=== PATIENT | female | born 1935 | race Caucasian/White ===

== ENCOUNTER 2019-10-12 17:25 | Emergency (ER) | payer MEDICARE ==
[~2019-10-12] VITALS: Ht 157.5 cm; Wt 58.1 kg
[~2019-10-12 17:25] MED LIST: AMLODIPINE BESYL5 MG PO; CITALOPRAM HBR10 MG PO; HARD NAILS2500 MCG PO; HYDROCHLOROTHIA25 MG PO; LEVAQUIN500 MG PO; METHOCARBAMOL750 MG PO; METHOTREXATE2.5 MG PO; NORVASC5 MG PO; OMEPRAZOLE40 MG PO; OXYBUTYNIN CHLOR5 MG PO; OXYBUTYNIN PO; PREDNISONE5 MG PO; PROMETHAZINE HC25 M1 PO; REQUIP PO; REQUIP4 MG PO; RESTORIL15 MG PO; SIMVASTATIN40 MG PO; TEMAZEPAM15 MG PO; TOPROL XL25 MG PO; ULTRAM 50MG50 MG PO; XANAX1 MG PO; Z.0.CEFTIN500 MG PO; Z.0.DIOVAN160 MG PO; Z.0.HYDROCHLOROTH12. PO; Z.0.LOPRESSOR25 MG PO; Z.0.NORVASC2.5 MG PO; Z.0.OMEPRAZOLE20 M1 PO; Z.0.ZOCOR40 MG PO
--- OUTSIDE RECORDS SUMMARY | 2019-10-12 17:29 | XMS REPORT | Encounter Summary ---
Author Organization Unknown Address [address] [place] [address] Phone [phone] Care Team Providers Care Paralegal Instructor Name Role Phone Dr. Mikey Maza 3 [phone] Mikey Hedrick MD 3 [phone] Darius Chambers MD 82 [phone] Netta Lu - Daughter 64 [phone] Paresh Varner MD 105 [phone] José Miguel Dixon MD 107 [phone] Dionisio López DO 113 [phone] Luis Ahn MD 114 [phone] Briana Luu MD 115 [phone] Vineet Seth MD 118 [phone] Artemio Weaver MD 121 [phone] Edmundo George MD 212 [phone] Reason for Visit sinus symptoms; shortness of breath; cough / congestion Instructions 1. Acute upper respiratory infection upper respiratory infection (cold): care instructions azithromycin 250 mg tablet fluticasone 50 mcg/actuation nasal spray,suspension iykfkmyklyvxjrr-vkoexgsatqhdrpw-IM 2 mg-30 mg-10 mg/5 mL oral syrup 2. Body mass index 20-24 - normal 3. Benign essential hypertension 4. Hypercholesterolemia 5. Rheumatoid arthritis 6. Congestive heart failure Discussion Note: None recorded. Plan of Care Reminders Provider Appointments Return to Office on or around 05/31/2019 Mikey De La Fuente MD Lab None recorded. Referral None recorded. Procedures None recorded. Surgeries None recorded. Imaging None recorded. Medications Name Start Date amlodipine 2.5 mg tablet Take 1 tablet every day by oral route. azithromycin 250 mg tablet TAKE 2 TABLETS (500 MG) BY ORAL ROUTE ONCE DAILY FOR 1 DAY THEN 1 TABLET (250 MG) BY ORAL ROUTE ONCE DAILY FOR 4 DAYS betamethasone dipropionate 0.05 % topical cream UNK IF PT USES THIS RX biotin QD vjbhiyqlmwlbavb-qtbmrlovtjwsewy-PJ 2 mg-30 mg-10 mg/5 mL oral syrup Take 10 mL every 4-6 hours by oral route as needed. buspirone 5 mg tablet QD ciclopirox 0.77 % topical cream UNK IF PT USES THIS RX clotrimazole-betamethasone 1 %-0.05 % topical cream APPLY TO THE AFFECTED AND SURROUNDING AREAS OF SKIN BY TOPICAL ROUTE 2 TIMES PER DAY IN THE MORNING AND EVENING FOR 2 WEEKS Co Q-10 QD eszopiclone 3 mg tablet Take 1 tablet every day by oral route at bedtime for 30 days. fluticasone 0.05 % topical cream UNK IF PT USES THIS RX fluticasone 50 mcg/actuation nasal spray,suspension [place] 1 spray every day by intranasal route as needed. folic acid 1 mg tablet TAKE 1 TABLET(S) EVERY DAY BY ORAL ROUTE FOR 30 DAYS. furosemide 40 mg tablet TAKE 1 TABLET BY MOUTH EVERY DAY levocetirizine 5 mg tablet QD mupirocin 2 % topical ointment UNK IF PT USES THIS RX potassium chloride ER 10 mEq tablet,extended release Take 1 tablet every day by oral route. potassium chloride ER 10 mEq tablet,extended release(part/cryst) ropinirole 5 mg tablet Take 1 tablet every day by oral route at bedtime for 30 days. sertraline 100 mg tablet Take 1 tablet every day by oral route for 30 days. simvastatin 40 mg tablet TAKE 1 TABLET EVERY DAY tramadol 50 mg tablet Vitamin B12 1000 MCG: OTC: 1 TAB A DAY Vitamin D 2,000 units : QD-OTC Medications Administered None recorded. Vitals Height Weight BMI Blood Pressure 4 ft 11.9 in 126.6 lbs 24.8 kg/m2 122/76 mm[Hg] Lab Results None recorded. Allergies Code Code System Name Reaction Severity Status Onset 875646 RxNorm Bactrim Active Sulfa (Sulfonamide Antibiotics) Active Problems Name Status Onset Date Source Hypercholesterolemia Active 09/24/2016 Insomnia Active 09/24/2016 Restless Legs Active 09/24/2016 Benign Essential Hypertension Active 09/24/2016 Dyspnea Active 09/24/2016 Chest Pain Active 09/24/2016 Moderate Depression Active 03/23/2017 Gastroesophageal Reflux Disease without Esophagitis Active 03/23/2017 Electrocardiogram Abnormal Active 03/23/2017 Congestive Heart Failure Active 02/02/2018 Psoriasis Active 04/21/2018 Rheumatoid Arthritis Active 04/21/2018 Procedures Date Name Performed by 05/01/2018 Screening for Occult Blood in Feces Information not available Colonoscopy Information not available Nasal Surgery Procedure Information not available Partial Hysterectomy Information not available Vaccine List Vaccine Type influenza, high dose seasonal 09/24/20160.5 mL 12/02/20180.5 mL influenza, unspecified formulation 09/24/2015 pneumococcal conjugate PCV 13 03/23/20170.5 mL pneumococcal polysaccharide PPV23 04/20/20180.5 mL Social History Smoking Status Never Smoker Past Encounters 12/07/2018 Acute Upper Respiratory Infection; Body Mass Index 20-24 - Normal; Benign Essential Hypertension; Hypercholesterolemia; Rheumatoid Arthritis; Congestive Heart Failure Savannah Shabazz MD: [address] [place] [phone], Ph. 12/02/2018 Benign Essential Hypertension; Hypercholesterolemia; Moderate Depression; Candidal Intertrigo; Immunization; Body Mass Index 20-24 - Normal; Secondary Hyperparathyroidism; Rheumatoid Arthritis; Senile Purpura; Congestive Heart Failure; Atherosclerosis of Aorta; Postmenopausal State Mikey De La Fuente MD: [address] [place] [phone], Ph. History of Present Illness Note:83yo female presents for evaluation of URI symptoms starting last Thursday (3 days ago), worse on Thursday with head congestion, runny nose, sinus pressure, sore throat, cough productive of dark yellow phlegm. No blood in mucus. No fever, wheezing. Some shortness of breath with cough. Fatigue. Lives alone in senior apt in [place]. Here today with MOOSE.<div>Was recently seen last week on 12/02/18 for regular visit with medication refills. Had flu vaccine at that visit on 12/02/18.</div><div>Followed by Dr Chambers, cardiology for CHF</div ><div>Followed by Dr Vineet Seth, neph, for CKD3</div><div>Followed by rheum, Dr Dean - RA</div><div>Allergies: Bactrim (sulfa) - acute renal failure requiring temp dialysis (04/2013) on CKD3.</div> Review of Systems:ROS as noted in the HPI Review of Systems Comprehensive General Adult ROS Reported By: Patient Constitutional: Constitutional: no fever Eyes: Eyes: no vision change ENMT: Ears: no ear pain, difficulty hearing; wears bilateral hearing aids. Nose: no frequent nosebleeds, nose problems, sinus problems. Mouth/Throat: sore throat Cardiovascular: Cardiovascular: no chest pain Respiratory: Respiratory: no wheezing, no shortness of breath, no coughing up blood, cough Gastrointestinal: Gastrointestinal: no abdominal pain, no nausea, no vomiting, no diarrhea Neurologic: Neurologic: no headaches Endocrine: Endocrine: fatigue Allergic/Immunologic: Allergy/Immunologic: runny nose, sinus pressure Physical Exam Upper Respiratory Infection Exam Comprehensive Reported By: Patient Constitutional: General Appearance in no acute distress; pleasant, elderly female Skin: Inspection and palpation: no rash, no lesions, no ulcer, good turgor, no jaundice; dry skin Head: Sinuses right maxillary tenderness, left maxillary tenderness, right frontal tenderness, left frontal tenderness; frontal > maxillary sinus tenderness Eyes: Pupils EOM intact, PERRLA, conjunctiva non-injected Ears: Right External auditory canal normal appearance, no obstruction, no erythema, no discharge. Left External auditory canal normal appearance, no obstruction, no erythema, no discharge. Right Tympanic membrane pearly brown, landmarks clear; hearing aid removed for exam. Left Tympanic membrane: pearly brown, landmarks clear; hearing aid removed for exam Nose: Nasal Skin: no lesion, no lacerations. Nasal Mucosa normal, pink and moist Oral Cavity/Mouth: Lips, teeth, gums normal lips, normal gums. Oral Mucosa: normal, moist, no lesions. Palate: normal hard palate, normal soft palate. Tongue: normal tongue, no lesion, no edema. Tonsils: normal tonsils, no lesions. Posterior pharynx: normal Lymph Nodes: Cervical no palpable lymph node enlargement, no submandibular adenopathy, no posterior cervical adenopathy, no anterior cervical adenopathy, no supraclavicular adenopathy Neck: Neck symmetrical, trachea midline Lungs: Respiratory effort unlabored. Auscultation breath sounds normal, no wheezing, no rales / crackles, no rhonchi; CTA bilaterally Cardiovascular System: Auscultation regular rate and rhythm, no murmur, no rubs. Observation/Palpation of peripheral vascular system no edema
--- OUTSIDE RECORDS SUMMARY | 2019-10-12 17:29 | XMS REPORT ---
Author Organization Unknown Address [address] [place] [address] Phone [phone] Care Team Providers Care Court Transcriber Name Role Phone VASHTI THAPA MD 82 [phone] CURTIS GRAMAJO MD 115 [phone] NALINI DUGAN MD 118 [phone] KEYLA RAMIREZ MD 121 [phone] RANDALL HOWARD MD 105 [phone] RINA MANZANARES MD 114 [phone] COMFORT MCGUIRE MD 212 [phone] SUSU MENDOZA 113 [phone] Allergies Code Code System Name Reaction Severity Status Onset [id number] RxNorm Bactrim Active Sulfa (Sulfonamide Antibiotics) Active Medications Name Status Start Date Stop Date acetaminophen 300 mg-codeine 30 mg tablet Completed 09/24/2016 alclometasone 0.05 % topical cream Completed 09/24/2016 alprazolam 0.25 mg tablet i BID Completed 09/24/2016 03/23/2017 alprazolam 0.5 mg tablet Completed 03/23/2017 amlodipine 2.5 mg tablet Active Not available amlodipine 5 mg tablet Completed 09/24/2016 ammonium lactate 12 % lotion Completed 08/06/2017 amoxicillin 500 mg capsule Completed 09/24/2016 amoxicillin 500 mg-potassium clavulanate 125 mg tablet Completed 03/23/2017 amoxicillin 875 mg-potassium clavulanate 125 mg tablet Completed 08/06/2017 azithromycin 250 mg tablet Completed 11/05/2017 Belsomra 15 mg tablet Completed 08/06/2017 benzonatate 100 mg capsule Completed 03/23/2017 biotin QD Active Not available qwtkvwhpwmumpmg-rpmftrigdglclwv-JD 2 mg-30 mg-10 mg/5 mL syrup Completed 11/05/2017 cefdinir 300 mg capsule Take 1 capsule twice a day by oral route. Active Not available chlorhexidine gluconate 0.12 % mouthwash Completed 09/24/2016 Ciprodex 0.3 %-0.1 % ear drops,suspension INSTILL 4 DROPS INTO AFFECTED EAR(S) BY OTIC ROUTE 2 TIMES PER DAY FOR 7 DAYS Completed 11/05/2017 ciprofloxacin 250 mg tablet Completed 08/06/2017 ciprofloxacin 500 mg tablet Completed 01/29/2018 citalopram 10 mg tablet Completed 08/06/2017 citalopram 20 mg tablet Completed 03/23/2017 citalopram 40 mg tablet Completed 03/23/2017 clobetasol 0.05 % scalp solution Completed 09/24/2016 clobetasol 0.05 % topical cream Completed 09/24/2016 clonazepam 0.5 mg tablet Completed 03/23/2017 Co Q-10 QD Active Not available eszopiclone 2 mg tablet Take 1 tablet every day by oral route for 30 days. Completed 08/06/2017 eszopiclone 3 mg tablet Active Not available folic acid 1 mg tablet TAKE 1 TABLET(S) EVERY DAY BY ORAL ROUTE FOR 30 DAYS. Active Not available furosemide 20 mg tablet Completed 02/01/2018 furosemide 40 mg tablet Active Not available halobetasol propionate 0.05 % topical ointment Completed 09/24/2016 hydrochlorothiazide 25 mg tablet Completed 01/29/2018 hydrocodone 5 mg-acetaminophen 325 mg tablet Completed 08/06/2017 hydrocortisone 2.5 % topical cream Completed 09/24/2016 hydroxyzine HCl 25 mg tablet 1 tab every 2 days prn Completed 08/06/2017 hydroxyzine pamoate 25 mg capsule Completed 09/24/2016 levofloxacin 250 mg tablet Completed 09/24/2016 lorazepam 0.5 mg tablet Completed 03/23/2017 meloxicam 7.5 mg tablet Take 1 tablet twice a day by oral route. Completed 11/05/2017 methocarbamol 500 mg tablet Completed 08/06/2017 methotrexate sodium 2.5 mg tablet Completed 09/24/2016 mometasone 0.1 % topical cream Active Not available mometasone 0.1 % topical ointment Apply 1 application every day by topical route for 30 days. Completed 08/06/2017 mupirocin 2 % topical ointment Completed 09/24/2016 kgojwlky-prlzbixye-jgxltvelm 3.5 mg-10,000 unit/mL-1 % ear drops,susp Completed 02/01/2018 nitrofurantoin monohydrate/macrocrystals 100 mg capsule Completed 08/06/2017 nitroglycerin 0.4 mg sublingual tablet Completed 08/06/2017 omeprazole 40 mg capsule,delayed release Completed 03/23/2017 ondansetron HCl 4 mg tablet Completed 08/06/2017 oxybutynin chloride 5 mg tablet Take 1 tablet twice a day by oral route. Completed 09/24/2016 potassium chloride ER 10 mEq capsule,extended release QD Completed 09/24/2016 09/24/2016 potassium chloride ER 10 mEq tablet,extended release Take 1 tablet every day by oral route. Active Not available potassium chloride ER 10 mEq tablet,extended release(part/cryst) Completed 02/01/2018 quetiapine 25 mg tablet Completed 03/23/2017 quetiapine 50 mg tablet Completed 03/23/2017 ropinirole 4 mg tablet Completed 03/23/2017 ropinirole 5 mg tablet Active Not available ropinirole ER 6 mg tablet,extended release 24 hr Completed 03/23/2017 sertraline 25 mg tablet Active Not available sertraline 50 mg tablet Completed 03/23/2017 simvastatin 40 mg tablet Active Not available temazepam 15 mg capsule Take 1 capsule every day by oral route as needed. Completed 03/23/2017 temazepam 30 mg capsule Completed 09/24/2016 tramadol 50 mg tablet Active Not available trazodone 50 mg tablet Completed 03/23/2017 triamcinolone acetonide 0.025 % topical cream Completed 08/06/2017 triamcinolone acetonide 0.1 % topical cream Apply 1 application every day by topical route for 30 days. Completed 08/06/2017 triamcinolone acetonide 0.147 mg/gram topical aerosol Completed 03/23/2017 trospium 20 mg tablet Take 1 tablet every day by oral route. Completed 09/24/2016 Vitamin B12 1000 MCG: OTC: 1 TAB A DAY Active Not available Vitamin D 2,000 units : QD-OTC Active Not available Voltaren 1 % topical gel Completed 09/24/2016 zolpidem 5 mg tablet Completed 03/23/2017 Problems Name Status Onset Date Source Hypercholesterolemia Active 09/24/2016 Depressive Disorder Unknown 09/24/2016 Insomnia Active 09/24/2016 Restless Legs Active 09/24/2016 Benign Essential Hypertension Active 09/24/2016 Dyspnea Active 09/24/2016 Chest Pain Active 09/24/2016 Moderate Depression Active 03/23/2017 Gastroesophageal Reflux Disease without Esophagitis Active 03/23/2017 Electrocardiogram Abnormal Active 03/23/2017 Procedures Date Name Performed by Nasal Surgery Procedure Notes: Post Nasal Fracture Information not available Partial Hysterectomy Information not available 09/24/2016 Electrocardiogram [facility] [address] [place] [id number] ([facility] [address]) 03/23/2017 Electrocardiogram [facility] [address] [place] [address] (Work [address]) Lab Results Date Name Specimen Result Interpretation Description Value Range Status Address 08/06/2017 CMP, Serum or Plasma Alt 15 U/L 0-55 U/L Final [facility]: [address] [place] [address], [place] Ast 21 U/L 5-34 U/L Final [facility]: [address] [facility], [place] High Bun 44.2 mg/dL 9.8-20.1 mg/dL Final [facility]: [address] [place] [address], [place] Alk Phos 102 unit/L 40-150 unit/L Final [facility]: [address] [facility], [place] High Glucose 101 mg/dL 70-99 mg/dL Final [facility]: [address] [place] [address], [place] Albumin 3.8 g/dL 3.5-5.0 g/dL Final [facility]: [address] [facility], [place] High Creatinine 1.39 mg/dL 0.57-1.11 mg/dL Final [facility]: [address] [place] [address], [place] Low eGFR Non- 37 mL/min/1.73m2 >60 mL/min/1.73m2 Final [facility]: [address] [place] [address], [place] Total Bilirubin 0.4 mg/dL 0.2-1.2 mg/dL Final [facility]: [address] Low eGFR - 44 mL/min/1.73m2 >60 mL/min/1.73m2 Final [facility]: [address] [place] [address] Sodium 143 mEq/L 136-145 mEq/L Final [facility]: [address] Potassium 4.4 mEq/L 3.5-5.1 mEq/L Final [facility]: [address] Chloride 103 mmol/L 98-107 mmol/L Final [facility]: [address] Total Protein 7.4 g/dL 6.4-8.3 g/dL Final [facility]: [address] High Calcium 10.8 mg/dL 8.4-10.2 mg/dL Final [facility]: [address] Co2 28.7 mmol/L 23.0-31.0 mmol/L Final [facility]: [address] Anion Gap 11 calc Final [facility]: [address] 08/06/2017 Lipid Panel, Serum Hdl 49 mg/dL 40-60 mg/dL Final [facility]: [address] High Triglyceride 165 mg/dL 0-149 mg/dL Final [facility]: [address] VLDL Calc. 33 mg/dL Final [facility]: [address] cholesterol/HDL Ratio 3.2 mg/dL Final [facility]: [address] non-HDL Cholesterol Calc. 109 mg/dL 0-160 mg/dL Final [facility]: [address] Cholesterol 158 mg/dL 0-199 mg/dL Final [facility]: [address] LDL Calc. 76 mg/dL 0-130 mg/dL Final [facility]: [address] 03/23/2017 CMP, Serum or Plasma Alt 24 U/L 0-55 U/L Final [facility]: [address] Ast 29 U/L 5-34 U/L Final [facility]: [address] High Bun 56 mg/dL 10-20 mg/dL Final [facility]: [address] Alk Phos 62 unit/L 40-150 unit/L Final [facility]: [address] [facility], [place] Glucose 97 mg/dL 70-99 mg/dL Final [facility] [address] [facility] Albumin 3.7 g/dL 3.5-5.0 g/dL Final [facility]: [address], [place] High Creatinine 1.67 mg/dL 0.57-1.11 mg/dL Final [facility]: [address] [facility] Low eGFR Non- 30 mL/min/1.73m2 >60 mL/min/1.73m2 Final [facility]: [address] [place] [address] Total Bilirubin 0.7 mg/dL 0.2-1.2 mg/dL Final [facility]: [address] [facility] Low eGFR - 36 mL/min/1.73m2 >60 mL/min/1.73m2 Final [facility]: [address] [place] [address] Sodium 144 mEq/L 136-145 mEq/L Final [facility]: [address] Potassium 4.2 mEq/L 3.5-5.1 mEq/L Final [facility]: [address] Chloride 105 mmol/L 98-107 mmol/L Final [facility]: [address] [place] [address] Total Protein 7.3 g/dL 6.4-8.3 g/dL Final [facility] [address] [facility] Calcium 9.7 mg/dL 8.4-10.2 mg/dL Final [facility]: [address] Co2 27.1 mmol/L 23.0-31.0 mmol/L Final [facility]: [address] Anion Gap 12 calc Final [facility]: [address] [facility] 03/23/2017 Lipid Panel, Serum Hdl 48 mg/dL 40-60 mg/dL Final [facility]: [address] [facility] Triglyceride 124 mg/dL 0-149 mg/dL Final [facility]: [address] VLDL Calc. 25 mg/dL Final [facility]: [address] cholesterol/HDL Ratio 3 mg/dL Final [facility]: [address] non-HDL Cholesterol Calc. 111 mg/dL 0-160 mg/dL Final [facility]: [address] Cholesterol 159 mg/dL 0-199 mg/dL Final [facility]: [address] LDL Calc. 86 mg/dL 0-130 mg/dL Final [facility]: [address] 03/23/2017 HbA1C (Hemoglobin a1C), Blood High A1C W/eag 6.1 % 1.0-5.7 % Final [facility]: [address] Average Blood Glucose 128 mg/dL Final [facility]: [address] [facility] 09/24/2016 CBC W/ Auto Diff Wbc 6.82 x10*3/L 2.60-11.20 x10*3/L Final [facility]: [address] Low Rbc 3.57 10*12/L 3.93-5.87 10*12/L Final [facility]: [address] Hemoglobin 12.1 g/dL 10.7-15.7 g/dL Final [facility]: [address] Hematocrit 36.5 % 33.2-46.8 % Final [facility]: [address] [place] [address] Mcv 102.2 fL 77.8-103.4 fL Final [facility]: [address] Mch 33.9 pg 24.8-35.0 pg Final [facility]: [address] Mchc 33.2 g/dL 31.5-35.9 g/dL Final [facility]: [address] RDW-SD 46.7 fL 35.8-50.4 fL Final [facility]: [address] Platelet Count 169.0 k/uL 126.7-416.1 k/uL Final [facility]: [address] Mpv 11.3 fL 8.3-13.5 fL Final [facility]: [address] [place] Neut% 67.5 % 39.5-76.9 % Final [facility]: [address] [place] Lymph% 17.6 % 12.6-45.8 % Final [facility]: [address] [place] Mon% 11.4 % 3.7-12.9 % Final [facility]: [address] [place] Eos% 3.400 % 0.001-6.400 % Final [facility]: [address] [place] Baso% 0.1 % 0.0-1.5 % Final [facility]: [address] [place] Neut# 4.6 x10*3/L 0.6-7.6 x10*3/L Final [facility]: [facility] [address] [place] Lymph# 1.2 x10*3/L 0.7-3.3 x10*3/L Final [facility]: [address] [place] Mon# 0.8 x10*3/L 0.2-1.0 x10*3/L Final [facility]: [address] [place] Eos# 0.23 x10*3/L 0.00-0.44 x10*3/L Final [facility]: [address] [place] Baso# 0.010 x10*3/L 0.001-0.080 x10*3/L Final [facility] [address] [facility] 09/24/2016 CMP, Serum or Plasma Alt 23.0 U/L 0.0-55.0 U/L Final [facility]: [address] [facility] Ast 27.0 U/L 5.0-34.0 U/L Final [facility]: [address] [facility] High Bun 44.0 mg/dL 7.0-20.0 mg/dL Final [facility]: [address] Alk Phos 69.0 unit/L 40.0-150.0 unit/L Final [facility]: [address], [place] Glucose 92.0 mg/dL 70.0-99.0 mg/dL Final [facility]: [address], [place] Albumin 3.8 g/dL 3.5-5.0 g/dL Final [facility]: [address], [place] High Creatinine 1.4 mg/dL 0.6-1.1 mg/dL Final [facility]: [address], [place] Low eGFR Non- 36.3 mL/min/1.73m2 >60.0 mL/min/1.73m2 Final [facility]: [address] [place] Total Bilirubin 0.8 mg/dL 0.2-1.2 mg/dL Final [facility]: [address] [facility] Low eGFR - 46.7 mL/min/1.73m2 >60.0 mL/min/1.73m2 Final [facility]: [address], [place] Sodium 143.0 mEq/L 137.0-144.0 mEq/L Final [facility]: [address] [facility] Potassium 4.2 mEq/L 3.5-5.0 mEq/L Final [facility]: [address] [facility] Chloride 105.0 mmol/L 101.0-110.0 mmol/L Final [facility]: [address] [place] Total Protein 7.2 g/dL 6.4-8.3 g/dL Final [facility]: [address] [place] Calcium 9.9 mg/dL 8.4-10.2 mg/dL Final [facility]: [address], [place] Co2 28 mmol/L 22-31 mmol/L Final [facility]: [address] [facility] Anion Gap 10.0 calc Final [facility]: [address] [place] 09/24/2016 Lipid Panel, Serum High Hdl 69.0 mg/dL 40.0-60.0 mg/dL Final [facility]: [address] [place] [address], [place] Triglyceride 82.0 mg/dL 0.0-149.0 mg/dL Final [facility]: [address] [place] [address], [place] VLDL Calc. 16.4 mg/dL Final [facility]: [address] cholesterol/HDL Ratio 2.4 mg/dL Final [facility]: [address] [place] [address], [place] non-HDL Cholesterol Calc. 96.0 mg/dL 0.0-160.0 mg/dL Final [facility]: [address] [place] [address], [place] Cholesterol 165.0 mg/dL 0.0-199.0 mg/dL Final [facility]: [address] LDL Calc. 79.6 mg/dL 0.0-130.0 mg/dL Final [facility]: [address] [place] [address], [place] 09/24/2016 HbA1C (Hemoglobin a1C), Blood High A1C W/eag 6.0 % 1.0-5.7 % Final [facility]: [address] Average Blood Glucose 125.5 mg/dL Final [facility]: [address] [place] [address], [place] 04/30/2016 CMP, Serum or Plasma No observation recorded. [facility]: [id number], [place] 09/24/2015 CBC W/ Auto Diff No observation recorded. [facility]: [id number], [place] Electrocardiogram Rate & Rhythm 61 [facility]: [address], [place] Interval 164 [facility]: [address], [place] QRS Duration 170 [facility]: [address], [place] QT Interval 482 [facility]: [address], [place] Electrocardiogram Rate & Rhythm 58 [facility]: [address], [place] Interval 156 [facility]: [address], [place] QRS Duration 102 [facility]: [address], [place] Interval 462 [facility]: [address], [place] Past Encounters 02/01/2018 Syncope; Acute Urinary Tract Infection; Removal of Suture Jaden Montoya MD: [address] [place] [phone], Ph. 01/29/2018 Aishwarya Martinez: [address] [facility] [address], [place] [address], Ph. 11/05/2017 Benign Essential Hypertension; Hypercholesterolemia; Otitis Externa Jaden Montoya MD: [address] [place] [phone], Ph. 08/06/2017 Body Mass Index 20-24 - Normal; Benign Essential Hypertension; Hypercholesterolemia; Depressive Disorder; At Risk for Falls; Depression Screening; Edema; Otitis Externa; Acute Bronchitis Jaden Montoya MD: [address] [place] [phone], Ph. 03/23/2017 Dyspnea; Benign Essential Hypertension; Hypercholesterolemia; Electrocardiogram Abnormal; Diarrhea; Moderate Depression; Gastroesophageal Reflux Disease without Esophagitis; Adult Health Examination; Pneumococcal Vaccination Shanti Ferris MD: [address] [place] [phone], Ph. 09/24/2016 Dyspnea; Chest Pain; Depressive Disorder; Insomnia; Benign Essential Hypertension; Hypercholesterolemia; Adult Health Examination; Influenza Vaccination; Restless Legs Shanti Ferris MD: [address] [place] [phone], Ph. Social History Smoking Status Never Smoker Vaccine List Vaccine Type influenza, high dose seasonal 09/24/20160.5 mL influenza, unspecified formulation 09/24/2015 pneumococcal conjugate PCV 13 03/23/20170.5 mL Plan of Care Patient Instructions continue all meds,d/c q tip use continue all meds f/u gas operations superintendent ,enrober tender ,psychiatrist ,orthopedist Reminders Provider Appointments None recorded. Lab None recorded. Referral None recorded. Procedures None recorded. Surgeries None recorded. Imaging None recorded. Vitals 02/01/2018 03:45PM TCM Height Weight BMI Blood Pressure 5 ft 125 lbs 24.4 kg/m2 144/60 mm[Hg] 11/05/2017 12:30PM Est Patient Height Weight Blood Pressure 5 ft (1) 150/62 mm[Hg] (2) 140/60 mm[Hg] 08/06/2017 12:45PM Est Patient Height Weight BMI Blood Pressure 5 ft 121 lbs 23.6 kg/m2 110/64 mm[Hg] 03/23/2017 03:00PM Est Patient Height Weight BMI Blood Pressure 5 ft 128 lbs 25 kg/m2 126/54 mm[Hg] 09/24/2016 08:15AM PUBLIC HEALTH/EST CPX Height Weight BMI Blood Pressure 5 ft 125 lbs 24.4 kg/m2 (1) 140/71 mm[Hg] (2) 146/66 mm[Hg]
--- OUTSIDE RECORDS SUMMARY | 2019-10-12 17:29 | XMS REPORT | Encounter Summary ---
Author Organization Unknown Address [address] [place] [address] Phone [phone] Care Team Providers Care Fitness And Wellness Manager Name Role Phone Dr. Mikey Maza 3 [phone] Mikey Hedrick MD 3 [phone] Darius [place] MD 82 [phone] Netta Lu - Daughter 64 [phone] Paresh Varner MD 105 [phone] José Miguel Dixon MD 107 [phone] Luis Ahn MD 114 [phone] Briana Luu MD 115 [phone] Vineet Seth MD 118 [phone] Artemio Weaver MD 121 [phone] Edmundo George MD 212 [phone] Reason for Visit Benign essential hypertension; AWV Annual Wellness Visit Female (VFP) Instructions 1. Adult health examination 2. Benign essential hypertension amlodipine 10 mg tablet 3. Depression screening 4. Body mass index 25-29 - overweight learning about healthy weight 5. Screening for osteoporosis 6. Chronic kidney disease stage 3 7. At risk for falls preventing falls: care instructions 8. Thrombocytopenic disorder CBC w/ auto diff 9. Hyperkalemia BMP, serum or plasma 10. Screening for malignant neoplasm of colon 11. Screening mammography mammogram: about this test 12. Dyspnea on exertion electrocardiogram 13. Electrocardiogram abnormal Discussion Note: None recorded. Plan of Care Reminders Provider Appointments Est Patient 06/30/2019 10:15AM Mikey De La Fuente MD Lab BMP, Serum or Plasma 06/14/2019 [facility] Laboratory CBC W/ Auto Diff 06/14/2019 [facility] Referral None recorded. Procedures None recorded. Surgeries None recorded. Imaging Electrocardiogram 06/14/2019 [facility] ([facility]) [place] Medications Name Start Date amlodipine 10 mg tablet Take 1 tablet every day by oral route as directed for 30 days. amlodipine 2.5 mg tablet Take 1 tablet every day by oral route. biotin QD buspirone 7.5 mg tablet Take 1 tablet every day by oral route. Co Q-10 QD Creon 36,000 unit-114,000 unit-180,000 unit capsule,delayed release Take one capsul with a snack and 2 capsules with a meal 06/14/2019 folic acid 1 mg tablet TAKE 1 TABLET(S) EVERY DAY BY ORAL ROUTE FOR 30 DAYS. furosemide 40 mg tablet Take 0.5 mg every day by oral route. iron one daily levocetirizine 5 mg tablet Take 1 tablet every day by oral route. pantoprazole 20 mg tablet,delayed release Take 1 tablet every day by oral route. potassium chloride ER 10 mEq tablet,extended release Take 1 tablet every day by oral route. quetiapine 25 mg tablet Take 1 tablet every day by oral route for 30 days. ropinirole 5 mg tablet Take 1 tablet [...] BMI Blood Pressure 4 ft 11.9 in 128 lbs 25.1 kg/m2 (1) 192/70 mm[Hg] (2) 194/70 mm[Hg] Lab Results None recorded. Allergies Code Code System Name Reaction Severity Status Onset 069085 RxNorm Bactrim Active Sulfa (Sulfonamide Antibiotics) Active [...] Active 04/21/2018 Procedures Date Name Performed by Colonoscopy Information not available Nasal Surgery Procedure Information not available Partial Hysterectomy Information not available 06/14/2019 Electrocardiogram [facility] ([facility]) [id number] [place] [address] ([address]) Vaccine List Vaccine Type influenza, high dose seasonal 09/24/20160.5 mL 12/02/20180.5 mL influenza, unspecified formulation 09/24/2015 pneumococcal conjugate PCV 13 03/23/20170.5 mL pneumococcal polysaccharide PPV23 04/20/20180.5 mL Social History Tobacco Smoking Status Never Smoker Past Encounters 06/14/2019 Adult Health Examination; Benign Essential Hypertension; Depression Screening; Body Mass Index 25-29 - Overweight; Screening for Osteoporosis; Chronic Kidney Disease Stage 3; At Risk for Falls; Thrombocytopenic Disorder; Hyperkalemia; Screening for Malignant Neoplasm of Colon; Screening Mammography; Dyspnea on Exertion; Electrocardiogram Abnormal Mikey De La Fuente MD: [facility] [place] [address], Ph. History of Present Illness Mini Cog Reported By: Patient Functional Ability: Personal/Social/ Draw a clock and write in the numbers in the correct place, and set the time to 10 minutes after 11 o'clock was completed correctly? No, 3 word recall: Your nurse or doctor will ask you to remember 3 words. In 5 minutes, they will ask you to repeat them. Patient recalled 2 words Opioid Use Assessment Reported By: Patient Opioid Use Assessment:: Current Use of Opioids : Tramadol (Ultram). Has the patient tried other pain management modalities: yes Review of Systems Comprehensive General Adult ROS Reported By: Patient Constitutional: Constitutional: no fever Eyes: Eyes: no vision change ENMT: Ears: no ear pain. Nose: no sinus problems. Mouth/Throat: no sore throat Cardiovascular: Cardiovascular: no chest pain, no lightheadedness, shortness of breath when walking Respiratory: Respiratory: no cough, no wheezing Gastrointestinal: Gastrointestinal: no abdominal pain, no nausea, no vomiting, no constipation, no diarrhea Neurologic: Neurologic: no loss of consciousness, no headaches Psychiatric: Psych: no depression, no alcohol abuse, no anxiety, no suicidal thoughts Physical Exam General Adult Exam (male) Reported By: Patient Constitutional: General Appearance: healthy-appearing, overweight. Level of Distress: NAD. Ambulation: ambulating normally Psychiatric: Insight: good judgement. Mental Status: active and alert, normal mood, normal affect. Orientation: to time, to place, to person. Memory: recent memory normal, remote memory normal Eyes: Lids and Conjunctivae: non-injected, no discharge Neck: Neck: trachea midline Lungs: Auscultation: breath sounds normal Cardiovascular: Heart Auscultation: RRR, normal S1, normal S2, no murmurs Abdomen: Inspection and Palpation: soft, non-distended, no tenderness, no guarding Musculoskeletal:: Motor Strength and Tone: normal, normal tone. Joints, Bones, and Muscles: normal movement of all extremities. Extremities: no edema Neurologic: Gait and Station: normal gait
--- OUTSIDE RECORDS SUMMARY | 2019-10-12 17:29 | XMS REPORT | Encounter Summary ---
Author Organization Unknown Address [address] [place] [address] Phone [phone] Care Team Providers Care Medical Certification Specialist Name Role Phone Dr. Mikey Maza 3 [phone] Mikey Hedrick MD 3 [phone] Darius [place] MD 82 [phone] Netta Lu - Daughter 64 [phone] Paresh Varner MD 105 [phone] José Miguel [place] MD 107 [phone] Luis Ahn MD 114 [phone] Briana Luu MD 115 [phone] Vineet Seth MD 118 [phone] Artemio Weaver MD 121 [phone] Edmundo George MD 212 [phone] Reason for Visit Left rib pain Instructions 1. Benign essential hypertension 2. Fall 3. Rib pain XR, ribs, unilateral, 2 view tramadol 50 mg tablet prednisone 20 mg tablet 4. Ecchymosis CBC w/ auto diff Discussion Note Daughter will take pt to her home to stay with her for a few days Encouraged to get the Flu vaccine in Jul last week - Aug 23, 2019. Frequent deep breaths in & out to avoid Atelectasis at lung bases. Usea large firm pillow & push against leo Lt rivs & do slow deep breaths in & out . f/u in 2 week with pcp Patient educational handouts: No information available. Plan of Care Reminders Provider Appointments None recorded. Lab CBC W/ Auto Diff 07/12/2019 [facility] Laboratory Referral None recorded. Procedures None recorded. Surgeries None recorded. Imaging XR, Ribs, Unilateral, 2 View 07/12/2019 [facility] Medications Name Start Date amlodipine 10 mg tablet Take 1 tablet every day by oral route as directed for 30 days. biotin QD buspirone 7.5 mg tablet Take [...] 1 tablet every day by oral route. prednisone 20 mg tablet Take 1 tablet every day by oral route after meals for 5 days. take with food in am quetiapine 25 mg tablet Take 1 tablet every day by oral route for 30 days. ropinirole 5 mg tablet Take 1 tablet every day by oral route at bedtime for 30 days. sertraline 100 mg tablet Take 1 tablet every day by oral route for 30 days. simvastatin 40 mg tablet TAKE 1 TABLET EVERY DAY tramadol 50 mg tablet Take 1 tablet twice a day by oral route as needed for 15 days. no alcohol or driving when on this medicine Vitamin B12 1000 MCG: OTC: 1 TAB A DAY Vitamin D 2,000 units : QD-OTC Medications Administered None recorded. Vitals Height Weight BMI Blood Pressure 4 ft 11.9 in 128.4 lbs 25.2 kg/m2 136/60 mm[Hg] Lab Results Date Name Specimen Result Interpretation Description Value Range Status Address 07/12/2019 CBC W/ Auto Diff Wbc 8.23 x10*3/L 3.98-10.04 x10*3/L Final [facility] Laboratory: [address] Low Rbc 3.66 10*12/L 3.93-5.22 10*12/L Final [facility] Laboratory: [address] Hemoglobin 12.00 g/dL 11.20-15.70 g/dL [facility] Laboratory: [address] Hematocrit 36.7 % 34.1-44.9 % [facility] Laboratory: [address] High Mcv 100.3 fL 80.0-100.[address] [facility] Laboratory: [address] Denson [facility] Mch 32.8 pg 25.6-32.[address] [facility] Laboratory: [address] [place] Mchc 32.7 g/dL 32.2-35.5 g/dL Final [facility]: [address] [place] High RDW-SD 47.4 fL 36.4-46.[address] [facility] Laboratory: [address] [place] Low Platelet Count 170.0 k/uL 182.0-369.0 k/uL Final [facility]: [address] [place] Mpv 11.5 fL 7.5-11.[address] [facility] Laboratory: [address] Denson [facility] Neut% 78.5 % 34.0-71.1 % Final [facility]: [address] [place] Low Lymph% 11.8 % 19.3-51.7 % Final [facility]: [address] [place] Mon% 8.5 % 4.7-12.5 % Final [facility] Laboratory: [address] [place] Eos% 1.1 % 0.7-5.8 % Final [facility] Laboratory: [address] Denson, [place] Baso% 0.1 % 0.1-1.2 % Final [facility]: [address] [place] High Neut# 6.5 x10*3/L 1.6-6.1 x10*3/L Final [facility] Laboratory: [address] [place] Low Lymph# 1.0 x10*3/L 1.2-3.7 x10*3/L Final [facility] Laboratory: [address] [place] Mon# 0.7 x10*3/L 0.2-0.9 x10*3/L Final [facility]: [address]enson [place] Eos# 0.09 x10*3/L 0.04-0.36 x10*3/L Final [facility]: [address] [place] Baso# 0.01 x10*3/L 0.01-0.08 x10*3/L Final [facility]: [address] Denson [place] 06/14/2019 CBC W/ Auto Diff Wbc 5.23 x10*3/L 3.98-10.04 x10*3/L Final [facility]: [address] [place] Low Rbc 3.37 10*12/L 3.93-5.22 10*12/L Final [facility] Hemoglobin 11.10 g/dL 11.20-15.70 g/dL Final [facility] Hematocrit 34.1 % 34.1-44.9 % Final [facility] Mcv 101.2 fL 80.0-100.[address] [facility] High Mch 32.9 pg 25.6-32.[address] [facility] Mchc 32.6 g/dL 32.2-35.5 g/dL Final [facility]: [address] Denson [facility] RDW-SD 48.6 fL 36.4-46.[address] [facility] Low Platelet Count 150.0 k/uL 182.0-369.0 k/uL Final [facility] Mpv 12.7 fL 7.5-11.[address] [facility] Neut% 66.0 % 34.0-71.1 % Final [facility] [facility] Lymph% 21.6 % 19.3-51.7 % Final [facility] Mon% 11.1 % 4.7-12.5 % Final [facility] Eos% 1.1 % 0.7-5.8 % Final [facility] Baso% 0.2 % 0.1-1.2 % Final [facility]: [address] Denson [place] Neut# 3.5 x10*3/L 1.6-6.1 x10*3/L Final [facility] Laboratory: [address] Denson [place] Low Lymph# 1.1 x10*3/L 1.2-3.7 x10*3/L Final [facility] Laboratory: [address] Denson, [place] Mon# 0.6 x10*3/L 0.2-0.9 x10*3/L Final [facility]: [address] Majano [facility], [place] Eos# 0.06 x10*3/L 0.04-0.36 x10*3/L Final [facility]: [address] Denson [place] Baso# 0.01 x10*3/L 0.01-0.08 x10*3/L Final [facility]14[facility]2019 BMP, Serum or Plasma High Bun 30.1 mg/dL 9.8-25.0 mg/dL Final [facility] Laboratory: [address] Glucose 97 mg/dL 70-99 mg/dL Final [facility] Laboratory: [address] Majano [address] [place] [address] High Creatinine 1.43 mg/dL 0.57-1.11 mg/dL Final [facility] Laboratory: [address] ABNORMAL eGFR Non- 35 mL/min/1.73m2 Final [facility] Laboratory: [address] ABNORMAL eGFR - 43 mL/min/1.73m2 Final [facility] Laboratory: [address] Sodium 142 mEq/L 135-145 mEq/L Final [facility] Laboratory: [address] Potassium 4.9 mEq/L 3.5-5.1 mEq/L Final [facility] High Chloride 111 mmol/L 98-110 mmol/L Final [facility] Laboratory: [address] Calcium 10.2 mg/dL 8.6-10.4 mg/dL Final [facility] Laboratory: [address] [place] [address], [place] Co2 24.9 mmol/L 20.0-32.0 mmol/L Final [facility] Laboratory: [address] [place] [address], [place] Anion Gap [address] [facility] Laboratory: [address] [place] [address], [place] Allergies Code Code System Name Reaction Severity Status Onset 256294 RxNorm Bactrim Active Sulfa (Sulfonamide Antibiotics) Active [...] Active 04/21/2018 Procedures Date Name Performed by 11/09/1969 Hysterectomy (Total) Information not available Nasal Surgery Procedure Information not available Partial Hysterectomy Information not available 07/12/2019 XR, Ribs, Unilateral, 2 View [facility] [address] [place] [address] (Work [address]) Vaccine List Vaccine Type influenza, high dose seasonal 09/24/20160.5 mL 12/02/20180.5 mL influenza, unspecified formulation 09/24/2015 pneumococcal conjugate PCV 13 03/23/20170.5 mL pneumococcal polysaccharide PPV23 04/20/20180.5 mL Social History Tobacco Smoking Status Never Smoker Past Encounters 07/12/2019 Benign Essential Hypertension; Fall; Rib Pain; Ecchymosis Chris Granados MD: [address] [facility] [address] [place] [address], Ph. 06/14/2019 Adult Health Examination; Benign Essential Hypertension; Depression Screening; Body Mass Index 25-29 - Overweight; Screening for Osteoporosis; Chronic Kidney Disease Stage 3; At Risk for Falls; Thrombocytopenic Disorder; Hyperkalemia; Screening for Malignant Neoplasm of Colon; Screening Mammography; Dyspnea on Exertion; Electrocardiogram Abnormal Mikey De La Fuente MD: [address] [place] [address], Ph. History of Present Illness Note:Here wth daughter Ms Miri Lu as she fell on was feeling dizzy as she got up fast & fell to her Lt side & No loss of consciousness , Hit her Lt side of rib against the arm of A chair, No problem then & for a few days but pain started yesterday when she woke up on Lt side of rib. . Pain to take deep Breaths , bruising ++,since 2 days . took ibuprofen & it helped , Not taking tramadol ( used to take in the past & no help) Review of Systems:ROS as noted in the HPI Review of Systems None recorded. Physical Exam General Adult Exam (Female) Reported By: Patient Constitutional: General Appearance: well-nourished, well-developed; BMI - 25.2. Level of Distress: moderate distress. Ambulation: ambulation with cane Psychiatric: Insight: good judgement. Mental Status: active and alert, normal mood, normal affect. Orientation: to time, to place, to person Head: Head: normocephalic, atraumatic Eyes: Lids and Conjunctivae: non-injected, no discharge, no pallor. Pupils: PERRLA. Corneas: grossly intact. EOM: EOMI. Lens: clear. Sclerae: non-icteric ENMT: Ears: no lesions on external ear, EACs clear, TMs clear. Hearing: no hearing loss. Nose: no lesions on external nose, nares patent, no septal deviation, nasal passages clear, no sinus tenderness, no nasal discharge. Lips, Teeth, and Gums: no mouth or lip ulcers, no bleeding gums, normal dentition. Oropharynx: moist mucous membranes, no erythema, no exudates, tonsils not enlarged Neck: Neck: supple, trachea midline, no masses, FROM; decreased range of motion in Neck to the Lt side. Lymph Nodes: no cervical LAD, no supraclavicular LAD, no axillary LAD. Thyroid: no enlargement, non-tender, no nodules Lungs: Respiratory effort: no dyspnea. Auscultation: breath sounds normal, good air movement, CTA except as noted, no wheezing, no rales/crackles, no rhonchi; discomofrt to deep breaths & with exhalation & when trying to get up & also sit down in the chair Cardiovascular: Heart Auscultation: RRR, normal S1, normal S2, no murmurs, no rubs, no gallops Abdomen: Bowel Sounds: normal. Inspection and Palpation: soft, non-distended, no tenderness, no guarding, no rebound tenderness, no masses, no CVA tenderness. Liver: non-tender, no hepatomegaly Musculoskeletal:: Motor Strength and Tone: normal motor strength, normal tone. Joints, Bones, and Muscles: normal movement of all extremities, no bony abnormalities, no contractures, no malalignment, no tenderness; discomfort to palpation of Lt posterior ribs & Lt posterior axillary line. Extremities: no cyanosis, no edema, no varicosities Neurologic: Gait and Station: normal gait, normal station. Cranial Nerves: grossly intact. Sensation: grossly intact Skin: Inspection and palpation: no rash, no lesions, no abnormal nevi, good turgor, no jaundice; ecchymosis - 6 cm x 2.5 cm on lt posterior lower ribs. Nails: normal Back: Thoracolumbar Appearance: normal curvature
--- OUTSIDE RECORDS SUMMARY | 2019-10-12 17:29 | XMS REPORT | Encounter Summary ---
Author Organization Unknown Address [address] [place] [address] Phone [phone] Care Team Providers Care Clinical Education Manager Name Role Phone Dr. Mikey Maza 3 [phone] Mikey Hedrick MD 3 [phone] Darius [place] MD 82 [phone] Netta Lu - Daughter 64 [phone] Paresh Varner MD 105 [phone] José Miguel [place] MD 107 [phone] Dionisio López DO 113 [phone] Luis Ahn MD 114 [phone] Briana Luu MD 115 [phone] Vineet Seth MD 118 [phone] Artemio Weaver MD 121 [phone] Edmundo George MD 212 [phone] Reason for Visit Hypercholesterolemia; Insomnia; Benign essential hypertension Instructions 1. Benign essential hypertension amlodipine 2.5 mg tablet potassium chloride ER 10 mEq tablet,extended release CBC w/ auto diff 2. Hypercholesterolemia simvastatin 40 mg tablet CMP, serum or plasma lipid panel, serum TSH, serum or plasma 3. Moderate depression 4. Candidal intertrigo clotrimazole-betamethasone 1 %-0.05 % topical cream 5. Immunization Fluzone High-Dose 0128-2468 (PF) 180 mcg/0.5 mL intramuscular syringe 6. Body mass index 20-24 - normal 7. Secondary hyperparathyroidism 8. Rheumatoid arthritis 9. Senile purpura 10. Congestive heart failure 11. Atherosclerosis of aorta 12. Postmenopausal state bone density referral Discussion Note: None recorded. Patient educational handouts: No information available. Plan of Care Reminders Provider Appointments Return to Office on or around 05/31/2019 Mikey De La Fuente MD Lab CBC W/ Auto Diff 12/02/2018 [facility] CMP, Serum or Plasma 12/02/2018 [facility] Lipid Panel, Serum 12/02/2018 [facility] TSH, Serum or Plasma 12/02/2018 [facility] Referral Bone Density Referral 12/02/2018 [facility] Procedures None recorded. Surgeries None recorded. Imaging None recorded. Medications Name Start Date amlodipine 2.5 mg tablet Take 1 tablet every day by oral route. betamethasone dipropionate 0.05 % topical cream UNK IF PT USES THIS RX biotin QD buspirone 5 mg tablet QD ciclopirox 0.77 [...] cream UNK IF PT USES THIS RX folic acid 1 mg tablet TAKE 1 TABLET(S) EVERY DAY BY ORAL ROUTE FOR 30 DAYS. furosemide 40 mg tablet TAKE 1 TABLET BY MOUTH EVERY DAY levocetirizine 5 mg tablet QD mupirocin 2 % topical ointment UNK IF PT USES THIS RX potassium chloride ER 10 mEq tablet,extended release Take 1 tablet every day by oral route. ropinirole 5 mg tablet Take 1 tablet [...] BMI Blood Pressure 4 ft 11.9 in 127 lbs 24.9 kg/m2 150/86 mm[Hg] Lab Results None recorded. Allergies Code Code System Name Reaction Severity Status Onset 836662 RxNorm Bactrim Active Sulfa (Sulfonamide Antibiotics) Active [...] History Smoking Status Never Smoker Past Encounters 12/02/2018 Benign Essential Hypertension; Hypercholesterolemia; Moderate Depression; Candidal Intertrigo; Immunization; Body Mass Index 20-24 - Normal; Secondary Hyperparathyroidism; Rheumatoid Arthritis; Senile Purpura; Congestive Heart Failure; Atherosclerosis of Aorta; Postmenopausal State Mikey De La Fuente MD: [id number] [place] [address], Ph. History of Present Illness Note:F/u on chronic conditions. Needs refill in meds. Non Compliant with meds (ran out 1 week ago). Compliant with diet and exercise. BPs at home 150s/70s. No side effects with meds. Review of Systems Comprehensive General Adult ROS Reported By: Patient Constitutional: Constitutional: no fever Eyes: Eyes: no vision change ENMT: Ears: no ear pain. Nose: no sinus problems. Mouth/Throat: no sore throat Cardiovascular: Cardiovascular: no chest pain, no palpitations, no lightheadedness Respiratory: Respiratory: no cough, no wheezing, no shortness of breath Gastrointestinal: Gastrointestinal: no abdominal pain, no nausea, no vomiting, no constipation, no diarrhea Musculoskeletal: Musculoskeletal: no muscle aches, no swelling in the extremities Integumentary: Skin: rash, itching Neurologic: Neurologic: no loss of consciousness, no headaches Physical Exam General Adult Exam (male) Reported By: Patient Constitutional: General Appearance: healthy-appearing, overweight. Level of Distress: NAD. Ambulation: ambulating normally Psychiatric: Insight: good judgement. Mental Status: active and alert, normal mood, normal affect. Orientation: to time, to place, to person. Memory: recent memory normal, remote memory normal Eyes: Lids and Conjunctivae: non-injected, no discharge ENMT: Ears: TMs clear. Nose: no sinus tenderness. Lips, Teeth, and Gums: no mouth or lip ulcers. Oropharynx: moist mucous membranes Neck: Neck: trachea midline Lungs: Auscultation: breath sounds normal Cardiovascular: Heart Auscultation: RRR, normal S1, normal S2, no murmurs Abdomen: Inspection and Palpation: soft, non-distended, no tenderness, no guarding Musculoskeletal:: Motor Strength and Tone: normal, normal tone. Joints, Bones, and Muscles: normal movement of all extremities. Extremities: no edema Neurologic: Gait and Station: normal gait Skin: Inspection and palpation: ; erythematous rash below the breasts
[2019-10-12 18:35] LABS: BASOPHILS % 0.4 % (0.0-1.0); EOSINOPHILS # (AUTO) 0.2 (0.0-0.4); EOSINOPHILS % 2.9 % (0.0-6.0); HEMATOCRIT 34.3 % (34.2-44.1); HEMOGLOBIN 11.1 g/dL (12.0-16.0); LYMPHOCYTES # (AUTO) 1.1 (1.0-3.2); LYMPHOCYTES % 21.9 % (18.0-39.1); MEAN CORPUSCULAR HEMOGLOBIN 32.8 pg (28-32); MEAN CORPUSCULAR HGB CONC 32.4 g/dL (31-35); MEAN CORPUSCULAR VOLUME 101.5 fL (81-99); MONOCYTES # (AUTO) 0.5 (0.2-0.8); MONOCYTES % 10.3 % (4.4-11.3); NEUTROPHILS # (AUTO) 3.3 (2.1-6.9); NEUTROPHILS % 64.3 % (38.7-80.0); PLATELET COUNT 187 x10e3/uL (140-360); RED BLOOD COUNT 3.38 x10e6/uL (3.6-5.1); RED CELL DISTRIBUTION WIDTH 12.3 % (11.7-14.4)
[2019-10-12 18:41] LABS: INR 0.89; PROTHROMBIN TIME 12.5 seconds (11.9-14.5)
[2019-10-12 18:42] LABS: PARTIAL THROMBOPLASTIN TIME 28.6 seconds (23.8-35.5)
--- NOTE | 2019-10-12 18:47 | Diagnostic Imaging Report ---
EXAMINATION: CHEST SINGLE (PORTABLE) COMPARISON: None INDICATION: Possible blood clots ^ERMD ORDER ^[id number] ^1815 ^Y DISCUSSION: Frontal view of the chest obtained at 1827 hours. HEART AND MEDIASTINUM: The heart is top normal in size. The aorta is tortuous with calcifications at the arch LINES: None. LUNGS: Mild hyperinflation. Calcified pleural plaque in the upper left chest. No pneumonia or pulmonary edema. PLEURA: No pleural effusion or pneumothorax. BONES AND SOFT TISSUES: Scoliosis of the thoracolumbar spine. Healed fracture of the left eighth rib. The soft tissues are normal. IMPRESSION: Cardiomegaly without vascular congestion. Pulmonary hyperinflation suggestive of small airways disease. Signed by: Dr. Dania Riojas MD on 10/12/2019 6:44 PM
[2019-10-12 18:52] LABS: ALBUMIN 3.6 g/dL (3.5-5.0); ALBUMIN/GLOBULIN RATIO 0.9 (0.8-2.0); ANION GAP 13.7 mmol/L (8-16); CALCIUM 10.2 mg/dL (8.4-10.2); CREATININE, SERUM 1.25 mg/dL (0.57-1.11); POTASSIUM 3.7 mmol/L (3.5-5.1)
[2019-10-12 19:01] LABS: CREATINE KINASE MB 9.5 ng/mL (0-5.0)
[2019-10-12 20:03] VITALS: BP 161/66
== END 2019-10-12 20:16 | disposition home or self-care (01) ==
LOC: ER 17:25
DX: L03.115 Cellulitis of right lower limb (principal); I10 Essential (primary) hypertension; I50.9 Heart failure, unspecified; F41.9 Anxiety disorder, unspecified; N18.9 Chronic kidney disease, unspecified; K21.9 Gastro-esophageal reflux disease without esophagitis; M06.9 Rheumatoid arthritis, unspecified; F31.9 Bipolar disorder, unspecified
CPT/HCPCS: 36415; 71045; 80053; 82550; 82553; 83880; 84484; 85025; 85610; 85730; 87040; 93005; 93970; 99283